=== PATIENT | male | born 1965 | race Caucasian/White ===

== ENCOUNTER 2020-01-27 20:33 | Inpatient (IN) | payer OTHER ==
[~2020-01-27] VITALS: Ht 170.2 cm; Wt 97.5 kg
[2020-02-01] MEDS ORDERED: PEPCID AC20 MG PO (17:58)
[2020-02-01] MEDS ORDERED: PROTONIX40 MG PO (17:58)
== END 2020-02-01 19:14 | disposition home or self-care (01) | DRG 444 ==
LOC: ER 20:33 → SEC-K 01-28 11:40 → MEDI 01-28 11:40
PROVIDERS: ADMIT Internal Medicine; ATTEND Internal Medicine
PROC: 3E0336Z Introduction of Nutritional Substance into Peripheral Vein, Percutaneous Approach (ICD-10-PCS; 2020-01-28)
PROC: 0FC98ZZ Extirpation of Matter from Common Bile Duct, Via Natural or Artificial Opening Endoscopic (ICD-10-PCS; principal; 2020-01-31)
DX: K80.51 Calculus of bile duct without cholangitis or cholecystitis with obstruction (principal); K85.10 Biliary acute pancreatitis without necrosis or infection; K21.9 Gastro-esophageal reflux disease without esophagitis; E87.8 Other disorders of electrolyte and fluid balance, not elsewhere classified; E86.0 Dehydration; Z20.828 Contact with and (suspected) exposure to other viral communicable diseases